=== PATIENT | male | born 1940 | race Caucasian/White ===

== ENCOUNTER 2017-07-19 19:16 | Observation (INO) | payer BC, MEDICARE ==
[2017-07-19] MEDS ORDERED: Atropine Sulfate 1 mg/10 ml Syringe ONE (19:45)
[2017-07-19 19:51] LABS: #Eosinphils 0.1 thou/uL (0.0-0.7); #Lymphocytes 1.5 thou/uL (1.20-3.40); #Monocytes 0.7 thou/uL (0.11-0.59); #Neutrophils 5.6 thou/uL (1.40-6.50); %Basophils 0.3 % (0.0-1.0); %Eosinophils 1.6 % (0.0-10.0); %Lymphocytes 19.2 % (21.0-51.0); %Monocytes 8.3 % (0.0-10.0); Hematocrit 45.7 % (42.0-52.0); Mean Platelet Volume 7.6 fL (7.4-10.4); Red Blood Cell (RBC) Count 4.47 mill/uL (4.70-6.10); White Blood Cell (WBC) Count 7.9 thou/uL (4.8-10.8)
[2017-07-19 20:08] LABS: Lactic Acid - Sepsis 1.7 mmol/L (0.5-2.2)
[2017-07-19 20:14] LABS: ALT (SGPT) 18 U/L (8-55); AST (SGOT) 21 U/L (5-34); Alkaline Phosphatase 50 U/L (40-150); Anion Gap 13 mmol/L (10-20); BUN (Urea Nitrogen) 23 mg/dL (8.4-25.7); Bilirubin, Total 0.8 mg/dL (0.2-1.2); CK (CPK) 168 U/L (30-200); Calc. Creatinine Clearance 0 mL/min (70-130); Calcium 8.8 mg/dL (7.8-10.44); Carbon Dioxide 26 mmol/L (23-31); Chloride 105 mmol/L (98-107); Estimated GFR-MDRD 76; Globulin 2.5 g/dL (2.4-3.5); Protein, Total 6.3 g/dL (5.8-8.1)
[2017-07-19 20:16] LABS: Troponin I Less than 0.010 ng/mL (< 0.028)
--- NOTE | 2017-07-19 21:37 | CT ---
NONCONTRAST HEAD CT: History: Syncope. Patient is diaphoretic. Patient fell approximately 3 ft into a hole. Patient is on blood thinners. Comparison: None. Technique: Noncontrast head CT is performed from skull base to skull vertex. FINDINGS: No parenchymal hemorrhage. No extraaxial hematoma. No midline shift. The basilar cisterns are patent . Age appropriate atrophy. Cortical toro white matter differentiation is preserved. Ventricles and sulci are patent and symmetric. Minimal mucosal thickening of the posterior right ethmoid air cells. Slight asymmetric prominence of the right superior turbinate. Adequate aeration of the mastoid air cells. IMPRESSION: 1. No acute intracranial process. 2. Slight asymmetric prominence of the right superior turbinate and partial opacification right mast oid air cells. Non-emergent direct visualization is recommended. POS: CHRISTIANO
[2017-07-19 21:49] VITALS: BMI 24.9
[2017-07-19] MEDS ORDERED: Acetaminophen 500 MG TAB PO PRN (22:33)
[2017-07-19] MEDS ORDERED: Ondansetron HCl/PF 4 MG/2 ML Vial IVP PRN (22:33)
[2017-07-19] MEDS ORDERED: Ondansetron ODT 4 MG TAB PO PRN (22:33)
--- NOTE | 2017-07-20 01:04 | HP ---
DATE OF ADMISSION: 07/19/2017 PRIMARY CARE PROVIDER: Dr. Maurice Shay. CHIEF COMPLAINT: Passing out. HISTORY OF PRESENT ILLNESS: This is a 77-year-old male who presents to [facility] after sustaining a syncopal episode lasting approximately 1 minute while seated at h is table at home. The patient states he was eating dinner when he felt like he was about to pass ou t and suddenly fell forward onto his table. The patient states his told him he was out for thi roximately a minute coming to with some confusion. The patient states he did not believe that he ac tually passed out and had to be informed by his . The patient states earlier in the day, he had been working outside for over 2 hours and apparently stepped in a hole while pulling up flags for [employer]. He fell backwards landing on his left wrist, but did not strike his head or lo se consciousness. The patient denied taking any new medications or experienced any associated chest pain, unilateral weakness, difficulty with speech or vision. The patient denied any known history of heart disease or prior history of coronary artery disease. The patient denied any recent travel history, fever, chills or exposure history. The patient denied any prior history of syncope or mago lar type events. The patient does admit that he took a Viagra tablet at approximately 9:30 a.m. on 07/19/2017 and in the incident of syncope occurred approximately 1800 p.m. on 07/19/2017. In the em ergency room, the patient underwent general evaluation including a screening 12-lead EKG showing sin us bradycardia with first degree AV block. The patient received IV fluids with normal saline and 1 mg of atropine. The patient was transferred to the observation unit. PAST MEDICAL HISTORY: 1. Benign prostatic hyperplasia. 2. Hyperlipidemia. 3. Hypertension. 4. History of hydrocele. 5. Gastroesophageal reflux disease. 6. Diverticulosis. PAST SURGICAL HISTORY: 1. Status post hydrocele repair in 1992. 2. Status post colonoscopies with diverticulosis noted. CURRENT MEDICATIONS: 1. Amlodipine 2.5 mg p.o. at bedtime. 2. Enteric coated aspirin 81 mg 1 tab p.o. daily. 3. Proscar 5 mg p.o. at bedtime. 4. Losartan/HCTZ 50/12.5 mg 1 tab p.o. at bedtime. 5. Reardan-3 fatty acids 1 capsule p.o. daily. 6. Zocor 20 mg p.o. at bedtime. ALLERGIES: IODINE. FAMILY HISTORY: Father at 76 secondary to complications of stroke. Mother at 86 with per forated peptic ulcer. One sister with atrial fibrillation. SOCIAL HISTORY: The patient is and resides in [place], [place]. 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 No current alcohol, tobacco or illicit drug use. REVIEW OF SYSTEMS: The following complete review of systems was negative, unless otherwise mentione d in the HPI or below: Constitutional: Weight loss or gain, ability to conduct usual activities. Skin: Rash, itching. Eyes: Double vision, pain. ENT/Mouth: Nose bleeding, neck stiffness, pain, tenderness. Cardiovascular: Palpitations, dyspnea on exertion, orthopnea. Respiratory: Shortness of breath, wheezing, cough, hemoptysis, fever or night sweats. Gastrointestinal: Poor appetite, abdominal pain, heartburn, nausea, vomiting, constipation, or diar gera. Genitourinary: Urgency, frequency, dysuria, nocturia. Musculoskeletal: Pain, swelling. Neurologic/Psychiatric: Anxiety, depression. Allergy/Immunologic: Skin rash, bleeding tendency. PHYSICAL EXAMINATION: VITAL SIGNS: Currently, blood pressure 118/72, pulse 65, respiratory rate 14, temperature 97.8 degr ees Fahrenheit, O2 saturation 98% on room air. GENERAL APPEARANCE: This is a 77-year-old male, alert and oriented x3, pleasant, conversa nt, smiling, in no acute distress. HEENT: Pupils are equal, round, and reactive to light and accommodation. Extraocular muscles are i ntact. No scleral icterus, no conjunctival injection. Nares patent. OP is clear. Teeth in good r epair. NECK: Supple, no cervical adenopathy, no thyromegaly, no carotid bruits, no JVD appreciated. Cervi brad spine with full active and passive range of motion. No meningeal signs appreciated. CHEST: Lungs are clear to auscultation bilaterally. CARDIOVASCULAR: S1, S2, without noted murmur. ABDOMEN: Rounded, soft, nontender, nondistended. Bowel sounds are positive in all four quadrants. There is no hepatosplenomegaly, no abdominal bruits, no rebound or guarding appreciated. EXTREMITIES: Warm and dry with fair turgor. No clubbing, cyanosis or asymmetric edema appreciated. Pulses palpable distally at the dorsalis pedis, posterior tibial, and popliteal arteries bilateral ly. Capillary refill less than 2 seconds. NEUROLOGIC: Cranial nerves II-XII are grossly intact. No focal or lateralizing signs appreciated. PERTINENT LABORATORY AND X-RAY FINDINGS: Basic metabolic profile within normal limits. Lactic acid level 1.7 and calcium 8.8. LFTs within normal limits. Troponin I negative x1. BNP 25. Albumin 3 .8. CBC showed a white blood cell count of 7.9, hemoglobin 15, hematocrit 46, MCV 102, platelet cou nt [address] of the brain without contrast dated 07/19/2017 showed no acute intracranial process. EKG dated 07/19/2017 by my interpretation shows sinus bradycardia with heart rates in the 50s. Normal R-wave progression noted in the precordial leads. Normal axis. Isolated T-wave inversion in lead III. No acute ST-T wave changes appreciated. ASSESSMENT AND PLAN: 1. Syncope. Etiology unclear. We will continue in observation status on the telemetry unit. [facility] k carotid Doppler study and 2D transthoracic echocardiogram in the a.m. Check orthostatic vital sig ns. Check TSH and magnesium level. Continue telemetry monitoring to rule out arrhythmia or dysrhyt hmia. 2. Hypertension. Resume home antihypertensive regimen and monitor blood pressure response. 3. Sinus bradycardia. We will continue telemetry monitoring to follow overall heart rate trend. 4. Dyslipidemia. Check fasting lipid profile in the a.m. 5. Prophylaxis. Sequential compression devices while in bed. 6. Pepcid 20 mg p.o. b.i.d. 7. Code status is FULL. Surrogate medical decision maker is patient's spouse.
[2017-07-20 05:50] LABS: Band 1 % (5-11); Hematocrit 41.7 % (42.0-52.0); Mean Platelet Volume 7.6 fL (7.4-10.4); Neutrophil 57 % (42-75); Reactive Lymphocytes 1 % (0-10); Red Blood Cell (RBC) Count 4.06 mill/uL (4.70-6.10); White Blood Cell (WBC) Count 8.5 thou/uL (4.8-10.8)
--- NOTE | 2017-07-20 07:57 | ULT ---
BILATERAL CAROTID DUPLEX ULTRASOUND: DATE: 07/20/17 HISTORY: Syncope. TECHNIQUE: Hinkle scale ultrasound with color flow and spectral Doppler imaging of the extracranial carotid arter y systems performed bilaterally. FINDINGS: There is plaque formation on either side. The peak systolic velocity in the right ICA measures 93 cm/second with an end-diastolic velocity of 29 cm/second and a systolic ratio of 1.29. The peak systolic velocity in the left ICA measures 73 cm/second with an end-diastolic velocity of 2 8 cm/second and a systolic ratio of 0.80. Flow in both vertebral arteries remains antegrade. IMPRESSION: No evidence of hemodynamically significant stenosis. POS: JEMMA
[2017-07-20] MEDS: Famotidine 20 MG TAB PO SCH ×2 (08:40→20:12)
[2017-07-20 11:37] LABS: Bilirubin Negative (Negative); Blood, Urine Negative (Negative); Glucose, Urine (Dipstick) Negative (Negative); Ketone, Urine Negative (Negative); Nitrite Negative (Negative); Protein, Urine (Dipstick) Negative (Neg-Trace); Urobilinogen 0.2 mg/dL (0.2-1.0)
[2017-07-20 11:42] LABS: Bacteria/HPF None Seen HPF (None Seen); Hyaline Casts/LPF 0-3 HYALINE CAST LPF (0-3 Hyaline); RBC/HPF 0-3 HPF (0-3); Squamous Epithelial None Seen HPF (0-3); WBC/HPF 0-3 HPF (0-3)
--- NOTE | 2017-07-20 14:58 | PDOC.PN ---
- Subjective Encounter Start Date: 07/20/17 Encounter Start Time: 14:57 Patient seen and examined. No new complaints. No overnight events - Objective Resuscitation Status: Resuscitation Status FULL:Full Resuscitation MAR Reviewed: Yes Vital Signs & Weight: Vital Signs (12 hours) Temp Pulse Resp BP BP BP BP 07/20/17 10:22 97.6 F 71 20 96/56 L 07/20/17 07:08 98.1 F 57 L 16 119/73 117/74 118/77 07/20/17 07:05 98.4 F 56 L 14 07/20/17 04:24 98.4 F 56 L 14 113/65 BP Pulse Ox 07/20/17 10:22 95 07/20/17 07:08 99/60 95 07/20/17 07:05 07/20/17 04:24 95 Weight Weight 205 lb I&O: 07/19/17 07/20/17 07/21/17 06:59 06:59 06:59 Intake Total 480 600 Balance 480 600 Result Diagrams: 07/20/17 04:24 07/19/17 19:42 Phys Exam - Physical Examination Constitutional: NAD HEENT: PERRLA Neck: no JVD Respiratory: no wheezing Cardiovascular: no significant murmur Gastrointestinal: non-tender Musculoskeletal: pulses present Neurological: normal sensation Psychiatric: A&O x 3 Dx/Plan (1) Syncopal episodes Code(s): R55 - SYNCOPE AND COLLAPSE Status: Acute (2) Sinus bradycardia Code(s): R00.1 - BRADYCARDIA, UNSPECIFIED Status: Acute (3) HTN (hypertension) Code(s): I10 - ESSENTIAL (PRIMARY) HYPERTENSION Status: Acute (4) BPH (benign prostatic hyperplasia) Code(s): N40.0 - BENIGN PROSTATIC HYPERPLASIA WITHOUT LOWER URINRY TRACT SYMP Status: Acute (5) GERD (gastroesophageal reflux disease) Code(s): K21.9 - GASTRO-ESOPHAGEAL REFLUX DISEASE WITHOUT ESOPHAGITIS Status: Acute - Plan * orthostatic vitals * f/u echo and card rec's * hold all bp meds and monitor pts
--- NOTE | 2017-07-21 05:49 | CON ---
DATE OF CONSULTATION: 07/20/2017 HISTORY OF PRESENT ILLNESS: José Miguel Kingston is a 77-year-old white male, admitted with syncope. He was seen by Dr. Verde in 01/2009 in the hospital for evaluation of chest discomfort. He underwent Cardiolite treadmill testing, exercising for 10 minutes and 45 seconds and he had no ischemia on Cardiolite. He continues to remain quite active. He may jog 3-5 miles several times per week. He also states that over the last year he has lost 25 pounds, although his blood pressure medications have not been altered. He states at his home his systolic pressures usually 110. Last night he was sitting at dinner, apparently had a syncopal episode, falling forward on to the table. His stated that he was out approximately 1 minute and was mildly confused for a very short period of time after that. He had no tonic-clonic movements, fecal or urine loss. He had been working the outside, picking up flags after [employer] and also had a fall there, but did not lose consciousness. He denies any previous episodes of syncope. PAST MEDICAL HISTORY: Hypertension, hyperlipidemia, GERD, diverticulosis, benign prostatic hypertrophy. OPERATIONS: Hydrocele repair, MEDICATIONS: Amlodipine 2.5 mg at bedtime, Ecotrin 81 mg daily, Proscar 5 mg at bedtime, losartan/hydrochlorothiazide 50/12.5 bedtime, Zocor 20 mg at bedtime , omega-3 daily. ALLERGIES: IODINE. SOCIAL HISTORY: He does not smoke or drink. He is a professor at [employer] FAMILY HISTORY: Negative for coronary artery disease. REVIEW OF SYSTEMS: Twelve-point review of systems otherwise unremarkable. PHYSICAL EXAMINATION: VITAL SIGNS: 96/56, 127/68, pulse of 56. HEENT: PERRL. NECK: Supple. CHEST: Clear. CARDIAC: S1 and S2 are normal, without any S3, S4 or murmurs. Carotid upstrokes are normal, without bruits. ABDOMEN: Normal bowel sounds, without tenderness or organomegaly. EXTREMITIES: Revealed no clubbing, cyanosis or edema. NEUROLOGIC: Grossly intact. SKIN: Warm and dry. LABORATORY DATA: EKG reveals sinus bradycardia with rate of 55 per minute, first degree AV block, no acute changes. Hemoglobin 13.8, hematocrit 41.7, white count 8500, platelets 193,000. Sodium 140, potassium 4.2, chloride 105, carbon dioxide 26, BUN 23, creatinine 0.96, glucose 130, cholesterol 103, triglycerides 63, HDL 37, LDL 53. TSH is normal. IMPRESSION: 1. Syncopal episode, probably due to hypotension. He has had a 25-pound weight loss and his blood pressures remain low here without any of his medications approaching 48 hours. 2. Hypertension. 3. Hyperlipidemia. 4. Benign prostatic hypertrophy. 5. Gastroesophageal reflux disease. 6. Diverticulosis. RECOMMENDATIONS: The patient will continue to be monitored. He has very mild bradycardia with heart rate in the 50s but I do not see a more significant arrhythmia. I doubt that his bradycardia contributed to his syncopal episode. I would continue to hold all of his blood pressure medications at this time, and if blood pressure medicines need to be restarted, I would initially just start with losartan 50 without hydrochlorothiazide and also without the amlodipine. He probably can be discharged tomorrow with a 30-day monitor to rule out any other significant arrhythmias. THAI
[2017-07-21 08:08] VITALS: BP 121/64; TEMP 97.5
[2017-07-21] MEDS ORDERED: Losartan 25 MG TAB PO SCH (09:00)
[2017-07-21] MEDS: Famotidine 20 MG TAB PO SCH (09:09)
--- NOTE | 2017-07-21 10:02 | PDOC.PN ---
- Subjective Encounter Start Date: 07/21/17 Encounter Start Time: 10:01 Patient seen and examined. No new complaints. No overnight events - Objective Resuscitation Status: Resuscitation Status FULL:Full Resuscitation MAR Reviewed: Yes Vital Signs & Weight: Vital Signs (12 hours) Temp Pulse Resp BP BP BP Pulse Ox 07/21/17 07:14 97.5 F L 50 L 16 121/64 95 07/21/17 04:04 98.0 F 52 L 16 117/69 98 07/20/17 23:23 98.2 F 53 L 15 133/70 94 L Weight Weight 199 lb 9.6 oz I&O: 07/20/17 07/21/17 07/22/17 06:59 06:59 06:59 Intake Total 480 1380 Balance 480 1380 Result Diagrams: 07/20/17 04:24 07/19/17 19:42 Phys Exam - Physical Examination Constitutional: NAD HEENT: PERRLA Neck: no JVD Respiratory: no rales Cardiovascular: no significant murmur Gastrointestinal: no distention Musculoskeletal: pulses present Neurological: normal sensation Psychiatric: A&O x 3 Dx/Plan (1) Syncopal episodes Code(s): R55 - SYNCOPE AND COLLAPSE Status: Resolved (2) Sinus bradycardia Code(s): R00.1 - BRADYCARDIA, UNSPECIFIED Status: Acute (3) HTN (hypertension) Code(s): I10 - ESSENTIAL (PRIMARY) HYPERTENSION Status: Acute (4) BPH (benign prostatic hyperplasia) Code(s): N40.0 - BENIGN PROSTATIC HYPERPLASIA WITHOUT LOWER URINRY TRACT SYMP Status: Acute (5) GERD (gastroesophageal reflux disease) Code(s): K21.9 - GASTRO-ESOPHAGEAL REFLUX DISEASE WITHOUT ESOPHAGITIS Status: Acute - Plan * doing well * d/c home with event monitor * f/u with card * f/u with pcp * check bp bid
--- NOTE | 2017-07-21 13:31 | DIS ---
DATE OF ADMISSION: 07/19/2017 DATE OF DISCHARGE: 07/21/2017. DISCHARGE DIAGNOSES: 1. Syncopal episode, possibly secondary to hypertensive episode secondary to side effects of blood pressure medications. 2. Sinus bradycardia. Outpatient followup with Cardiology with an event monitor. 3. Dyslipidemia, stable. 4. Gastroesophageal reflux disease, stable. DISCHARGE MEDICATIONS: The patient's discharge medications include discontinuation of all the blood pressure medications. I have given him a prescription for losartan 25 mg p.o. daily which was also to be held with systolic blood pressure less than 125. Other home medications have been continued. CONSULTANTS: The patient's consultants on the case were Dr. Chuck Mix. BRIEF HOSPITAL COURSE: This is a 77-year-old pleasant gentleman who came into the hospital with his tory of syncopal episode. Please refer to the admitting physician's H\T\P for further details. He was admitted, his blood pressure was running low this hospital stay. With his lifestyle modificatio ns I thought that he was taking too much blood pressure medications and the side effect of that coul d have resulted in syncope. Dr. Mix agreed with that. He also suggested event monitor for bra dycardia. Right now, the patient is medically stable to be discharged. He is advised not to drive until he further sees Cardiology as an outpatient. The patient is also advised to take Viagra after checking his blood pressure. The patient is asked to come back to the hospital in case symptoms re cur. Studies on this hospital stay included echocardiogram which showed ejection fraction of 55% and balderas tid Doppler which showed no hemodynamically significant stenosis. The brain CT was also did not anthony w anything acute. He is right now medically stable to be discharged with outpatient followup with PCP and Cardiology. Total time for this discharge took 35 minutes.
--- NOTE | 2017-08-15 16:14 | EKG ---
Test Reason : Blood Pressure : / mmHG Vent. Rate : 055 BPM Atrial Rate : 055 BPM P-R Int : 216 ms QRS Dur : 106 ms QT Int : 462 ms P-R-T Axes : 027 -13 -11 degrees QTc Int : 441 ms Sinus bradycardia with 1st degree A-V block Otherwise normal ECG Confirmed by GISELL SWENSON, FOZIA Hoyt ([id number]), graphics editor ANGELIQUE FINE ([id number]) on 08/15/2017 4:14:08 PM Referred By: Confirmed By:FOZIA JAMESON MD
== END 2017-07-21 10:56 | disposition home or self-care (01) ==
LOC: ERS 19:16 → 2SW 20:00
PROVIDERS: ADMIT Internal Medicine Infectious Disease; ATTEND Internal Medicine Infectious Disease
DX: R55 Syncope and collapse (principal); R00.1 Bradycardia, unspecified; E78.5 Hyperlipidemia, unspecified; K21.9 Gastro-esophageal reflux disease without esophagitis; N40.0 Benign prostatic hyperplasia without lower urinary tract symptoms; I10 Essential (primary) hypertension; K57.90 Diverticulosis of intestine, part unspecified, without perforation or abscess without bleeding; Z79.899 Other long term (current) drug therapy; Z91.041 Radiographic dye allergy status; Z98.890 Other specified postprocedural states
CPT/HCPCS: 36415; 70450; 80053; 80061; 81001; 82553; 82607; 82746; 83605; 83735; 83880; 84443; 84484; 85007; 85025; 85027; 93005; 93306; 93880; 96361; 96374; A4216; G0378; J0461

== ENCOUNTER 2019-07-18 05:55 | Day surgery (SDC) | payer MEDICARE, BC ==
[2019-07-15 13:03] VITALS: BMI 24.5
[2019-07-18] MEDS ORDERED: Fentanyl 100 MCG/2 ML VIAL ONE (06:51)
[2019-07-18 06:53] LABS: #Eosinphils 0.4 thou/uL (0.0-0.7); #Monocytes 0.7 thou/uL (0.11-0.59); #Neutrophils 3.4 thou/uL (1.40-6.50); %Basophils 0.5 % (0.0-1.0); %Eosinophils 4.8 % (0.0-10.0); %Lymphocytes 39.7 % (21.0-51.0); %Monocytes 9.8 % (0.0-10.0); %Neutrophils 45.2 % (42.0-75.0); Hemoglobin 15.6 g/dL (14.0-18.0); Mean Corpuscular HGB CONC 33.7 g/dL (32.0-36.0); Mean Corpuscular Hemoglobin 33.4 pg (27.0-31.0); Mean Corpuscular Volume 99.4 fL (78.0-98.0); Mean Platelet Volume 7.5 fL (7.4-10.4); Platelet Count 209 thou/uL (130-400); RBC Distribution Width 11.6 % (11.5-14.5); Red Blood Cell (RBC) Count 4.67 mill/uL (4.70-6.10); White Blood Cell (WBC) Count 7.5 thou/uL (4.8-10.8)
[2019-07-18 07:08] LABS: INR-International Normal Ratio 1.1; PTT 37.3 SEC (22.9-36.1); Prothrombin Time 14.2 SEC (12.0-14.7)
[2019-07-18 07:09] LABS: Anion Gap 11 mmol/L (10-20); BUN (Urea Nitrogen) 19 mg/dL (8.4-25.7); Calc. Creatinine Clearance 88 mL/min (70-130); Calcium 9.2 mg/dL (7.8-10.44); Carbon Dioxide 25 mmol/L (23-31); Chloride 106 mmol/L (98-107); Estimated GFR-MDRD 87; Glucose 97 mg/dL (83-110); Sodium 138 mmol/L (136-145)
[2019-07-18] MEDS ORDERED: ePHEDrine/0.9% NaCl/PF SYRINGE 50 mg/10 ml ONE (10:19)
[2019-07-18] MEDS ORDERED: PROPOFOL 200 MG/20 ML VIAL ONE (10:19)
--- NOTE | 2019-07-18 14:38 | OP ---
DATE OF PROCEDURE: 07/18/2019 PREOPERATIVE DIAGNOSIS: Bladder stones. POSTOPERATIVE DIAGNOSIS: Bladder stones. PROCEDURE PERFORMED: Cysto . ANESTHESIA: General. ESTIMATED BLOOD LOSS: Minimal. FINDINGS: There is no evidence of bladder stones. There is no evidence of strictures. He has large trilobar BPH, 1+ trabeculation. No tumor, foreign body, or fistula in the urinary bladder to ureteral orifice with clear efflux. This is an 79-year-old white male, who was seen in the office a few weeks ago. Cystoscopy revealed a stone stuck in his prostatic urethra that was pushed back in the bladder and an additional stone in the bladder. He was set up for this procedure. 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 DESCRIPTION OF PROCEDURE: After obtaining written and verbal consent from the patient, he was taken to the operating suite. He was placed in supine position on the treatment table. PlexiPulses were placed on his lower extremities and turned on. He was given a general anesthetic and oral obturator intubation, placed in the dorsal lithotomy position, sterilely prepped and draped. Cystoscopy was performed with a 22-Anguillan sheath. This was passed under direct vision through the male urethra into the urinary bladder with the aid of a 30-degree lens and video camera and monitor. The bladder was filled and emptied number of times and examined on both the 30 and the 70-degree lens. The findings were as above. There was no evidence of any stones in his prostatic urethra or in the bladder itself. At this point, the instruments were removed. He was awakened, extubated, and taken by stretcher to recovery room. Job ID: [id number]
== END 2019-07-18 09:30 | disposition home or self-care (01) ==
LOC: SDC 05:55 → EDSTATUS 12:03
PROVIDERS: ATTEND Urology
PROC: 0TJB8ZZ Inspection of Bladder, Via Natural or Artificial Opening Endoscopic (ICD-10-PCS; principal; 2019-07-18)
DX: N32.89 Other specified disorders of bladder (principal); N40.0 Benign prostatic hyperplasia without lower urinary tract symptoms; I10 Essential (primary) hypertension; Z91.041 Radiographic dye allergy status
CPT/HCPCS: 36415; 80048; 85025; 85610; 85730; 93005; 93010; J0690; J2704; J3010